=== PATIENT | female | born 1940 | race Caucasian/White ===

== ENCOUNTER 2016-09-17 08:13 | Day surgery (SDC) | payer MEDICARE, OTHER ==
[2016-09-17] VITALS (9 sets, daily range): BP systolic 135–165; BP diastolic 55–75; PULSE 69–75; RESP 14–17; O2SAT 92–100
[~2016-09-17] VITALS: Ht 152.4 cm; Wt 53.8 kg
[~2016-09-17 08:13] MED LIST: CHOL200025 PO; CYAN500L4 PO; CeFAZolin 2 Gm/50 mL D5W IV Premix IV ONE; DOCU-41 PO; EZET10TA PO; KEN1O TP; LACT1CAP65 PO; LEVO50TA83 PO; MAGNESIUM PO; NITR0.4T6 SL; POLY17PO6 PO; RAMI10CA31 PO; ROSU40TA PO; ZYL100 PO; [UNRECOGNIZED DRUG - OTHER] PO
[2016-09-17] MEDS ORDERED: Ondansetron 2 mg/mL 2 mL Inj ONE (08:14)
[2016-09-17] MEDS ORDERED: fentaNYL-PF 50 mCg/mL 2 mL Inj ONE (08:14)
[2016-09-17] MEDS ORDERED: Dexamethasone 4 mg/mL Inj ONE (08:14)
[2016-09-17] MEDS ORDERED: Propofol 10,000 mCg/mL 20 mL Inj ONE (08:14)
--- NOTE | 2016-09-17 08:35 | PCM.HPANE ---
Patient Data Surgeon Admitting Provider: Attending Provider:Darrell Barraza MD Primary Care Physician:Shaylee Corrigan MD Other Provider:Pretty Hamiltoningham Anesthesia Reason for Visit Follicular Lymphoma, Axillary Lymphadenopathy Ht/WT & BMI Height (Feet): 4 Height (Inches): 11 Weight (Kilograms): 54.5 Body Mass Index 24.00 Allergies Coded Allergies: codeine (Verified Allergy, Unknown, unknown, 09/12/16) morphine (Verified Allergy, Unknown, unknown, 09/12/16) Sulfa (Sulfonamide Antibiotics) (Verified Adverse Reaction, Severe, vomiting, 09/12/16) Past Anesthesia History Anesthesia History: Denies:: Anesthesia Reactions, Malignant Hyperthermia Diabetes History Hx Diabetes?: No MRSA MRSA: No Medications Blood Thinner: Aspirin Hypertension Medication: Yes (RAMIPRIL) Reported Medications Cyanocobalamin (Vitamin B-12) (Vitamin B-12)500 Mcg Eugbwam270 Mcg PO DAILY 09/12/16 Triamcinolone Acet (Triamcinolone Acetonide Ointment)1 Applic/0.25 Gm Oint1 Applic TP BID PRN PRN #60 GM Ref 0 09/12/16 Polyethylene Glycol 3350 (Miralax)17 Gm Powd.pack17 Gm PO DAILY 09/12/16 Docusate Sodium (Colace)100 Mg Oujvksq909 Mg PO HS PRN For Constipation Ref 0 09/12/16 Allopurinol 100 Mg Ereoph489 Mg PO DAILY Ref 0 09/09/16 Lactobacillus Acidophilus (Probiotic)1 Each Capsule1 Each PO DAILY 09/09/16 [magnesium/chelated] No Conflict Fbskx287 Mg PO BID 09/09/16 Cholecalciferol (Vitamin D3) (Vitamin D3)2,000 Unit Tablet2,000 Unit PO DAILY 09/09/16 Nitroglycerin SL 0.4 Mg Tab.subl0.4 Mg SL DIRECTED PRN chest pain 09/09/16 Ezetimibe (Zetia)10 Mg Tablet5 Mg PO DAILY 30 Days Ref 0 10/01/14 Levothyroxine (Synthroid)50 Mcg Hbjdfk74 Mcg PO DAILY 30 Days Ref 0 10/01/14 Rosuvastatin Calcium (Crestor)40 Mg Iwaydf80 Mg PO DAILY 30 Days Ref 0 10/01/14 Ramipril (Altace)10 Mg Rqwagar64 Mg PO BID 10/01/14 Discontinued Reported Medications Aspirin 81 Mg Wofgxs75 Mg PO DAILY Ref 0 09/12/16 Cyanocobalamin (Vitamin B-12)500 Mcg Esl313 Mcg PO 10/01/[address] (Protonix)40 Mg Tablet.dr40 Mg PO DAILY 30 Days Ref 0 10/01/14 Hydrochlorothiazide 25 Mg Xuomzm16 Mg PO DAILY 30 Days Ref 0 10/01/14 Holt-3 Fatty Acids (Fish Oil)500 Mg Capsule.dr500 Mg PO DAILY PRN when needed 10/01/14 Docusate Sodium 100 Mg Ffkijlc637 Mg PO BID PRN For Constipation 30 Days Ref 0 10/01/14 Aspirin (Aspir 81)81 Mg Tablet.dr81 Mg PO DAILY Ref 0 10/01/14 Discontinued Scripts Amoxicillin/Clav K 875-125 mg (Augmentin 875-125 mg)1 Each Tablet1 Each PO BID 8 Days Ref 0 Prov:Dona Franks DO 10/03/14 History History of ENT Problems?: Yes HEENT History: Positive for:: Cataracts (early stage) Hx of Heart Problems?: Yes Cardiovascular History: Positive for:: Chest Pain (HX OF) Coronary Artery Disease Hypertension (HYPERLIPIDEMIA) Denies:: Congestive Heart Failure Heart Murmur Hx of Respiratory Problem?: No Respiratory History: Denies:: Tuberculosis Use of C-PAP Machine Hx Neurologic Problems?: No Hx of GI Problems?: Yes Gastrointestinal History: Positive for:: Diverticulitis ("HIGH-RIGHT BEHIND MY LIVER") Gall Bladder Disease (S/P SWETA) Gastroesphageal Reflux Hiatal Hernia (S/P RPR) Other GI Pertinent History: S/P APPY HX OF LYMPHOMA W/ BOWEL INVOLVEMENT Hx of Problems?: Yes Genitourinary History: Positive for:: Urinary Tract Infection (HX OF) Female Hx: Positive for:: Problems with Breasts? (S/P LT BREAST BX,PARTIAL MASTECTOMY FOR CA) Denies:: Currently Skin History: Positive for:: History Skin Disorders? (sensitive skin) Denies:: Pressure Ulcers Hx Musculoskeletal Problems?: Yes Musculoskeletal History: Positive for:: Back Injury (sciatica) Hx of Psycho/Social Problems?: No Hx Surgeries?: Yes (BREAST BX,LT MASTECTOMY,SWETA,APPY,HYST,HIATAL HERNIA RPR, THYROID LOBECTOMY) Hx Any Other Health Problems?: Yes Other History: Positive for:: Cancer (LT BREAST,LYMPHOMA W/ BOWEL INVOLVEMENT, PRO RT AXILLARY INVOLVEMENT) Hospitalization (ABD PAIN) Thyroid Disease (S/P LT THYROID LOBECTOMY) Denies:: Endocrine Disease History Blood Transfusions: Denies:: Blood Transfusions Hx Diabetes: No Other Pertinent History: FOLLICULAR LYMPHOMA/RT AXILLARY LYMPHADENOPATHY= CURRENT PROBLEM Hx Alcohol Use: YesAlcoholic Drinks Per Day: 2-4/WEEKHx Substance Use: No Smoking Status: Never Smoker Have You Smoked inLast 12 mo: No Stop/Bang S-Snoring: Do You Snore Loudly: No T-Tired: feel tired, fatigued: No O-Obsered: Observed not breath: No P-Blood Pressure: treated: Yes B- Body Mass Index > 35 kg/m2: No A- Age over 50: Yes N- Neck Large Circumference: No G- Gender Male: No ANAM Total Score: 2 Risk Assessment Category Category 1A: Patient has history of documented sleep apnea, and HAS NOT received any narcotic, sedative or anesthesia administration during this stay. Category 1B: Patient has history of documented sleep apnea, and HAS received any narcotic , sedative or anesthesia administration during this stay Category 2: Patient has SUSPECTED Obstructive Sleep Apnea, and HAS received any narcotic , sedative or anesthesia administration during this stay. Category 3: Patient has SUSPECTED Obstructive Sleep Apnea and HAS NOT received narcotic, sedative or anesthesia administration during this stay. Category 4: Outpatient in Procedural Areas with known sleep apnea or who screen positive for High Risk via the STOP/BANG questionnaire. Exam Exam General Appearance: Alert, Oriented X3, Cooperative, No Acute Distress HEENT/AIRWAY: MP 1 Lungs: Normal Air Movement, Other (Can lay flat without SOB, no trouble swallowing, no hoarseness, no leg swelling.) Heart: Regular Rate/Rhythm Plan Impression Patient chart reviewed, patient interviewed and anesthestic plan with risks, benefits, and alternatives discussed, and informed consent obtained. ASA Physical Status: ASA3 Severe Disease Anesthetic Plan: GA Bene/Risks/Altern/Consents: Yes HP Complete Prior to Induction: Yes Radha Hall DO Sep 17, 2016 08:35
[2016-09-17] MEDS: Lactated Ringer's 1,000 ML IV SCH ×2 (09:15→10:30)
[2016-09-17] MEDS ORDERED: Lactated Ringer's 1,000 ML IV SCH (10:25)
[2016-09-17] MEDS ORDERED: MetoCLOpramide 5 mg/mL 2 mL Inj IVPUSH PRN (10:25)
[2016-09-17] MEDS ORDERED: fentaNYL-PF 50 mCg/mL 2 mL Inj IVPUSH PRN (10:25)
[2016-09-17] MEDS ORDERED: Phenylephrine 10,000 mCg/mL Inj IVPUSH PRN (10:25)
[2016-09-17] MEDS ORDERED: EPHEDrine Sulfate 50 mg/mL Inj IVPUSH PRN (10:25)
[2016-09-17] MEDS ORDERED: Lactated Ringer's 500 ML IV PRN (10:25)
[2016-09-17] MEDS ORDERED: Ondansetron 2 mg/mL 2 mL Inj IVPUSH PRN (10:25)
[2016-09-17] MEDS ORDERED: HYDROmorphone 1 mg/mL Inj IVPUSH PRN (10:25)
[2016-09-17] MEDS ORDERED: HepLOK Flush 100 unit/mL 5 mL Inj IVFLUSH ONE (11:07)
[2016-09-17] MEDS ORDERED: Bupivacaine-MPF 0.5% 30 mL Inj INFILTRATE ONE (11:07)
[2016-09-17] MEDS ORDERED: HYDROcodone-APAP 5-325 mg Tablet PO PRN (11:45)
--- NOTE | 2016-09-17 11:55 | OP ---
[address] [address] OPERATIVE REPORT PATIENT: ELIU SIDDIQI : 1940 MR#: [id number] ADMIT: 09/17/2016 JOB ID: [id number] DATE OF SURGERY: 09/17/2016 ANESTHESIA: General. PREOPERATIVE DIAGNOSIS(ES): Stage IV low-grade follicular lymphoma and history of breast cancer and right axillary lymphadenopathy. POSTOPERATIVE DIAGNOSIS(ES): Stage IV low-grade follicular lymphoma and history of breast cancer and right axillary lymphadenopathy. OPERATIVE PROCEDURES: 1. Insertion of left subclavian vein Port-A-Cath using fluoroscopy with interpretation for guidance. 2. Right axillary lymph node excisional biopsy. SURGEON: Dr. Darrell Barraza. MA[employer] SECURITY: Adalberto Herrera PA-C (the administrative assistant was required for safe and timely completion of the case) and JUDY Marina. COMPLICATIONS: None. ESTIMATED BLOOD LOSS: Minimal. CONDITION: Satisfactory. SPECIMEN: Right axillary lymph node. FINDINGS: 1. A low-profile port was placed in the left subclavian vein without complication. 2. A large easy palpable right axillary node was removed and sent for flow cytometry and gross analysis. INDICATIONS/SIGNIFICANT HISTORY: The patient is a 75-year-old female with a remote history of low-grade follicular lymphoma which has been observed as well as a history of stage I left breast cancer in 2009. She was recently noticed to have enlarging right axillary adenopathy as well as 7 [address] weight loss. A CT was obtained which demonstrated enlarged mediastinal and right axillary lymph nodes and a moderate right pleural effusion. There was a large retroperitoneal mass in the abdomen. The thought was that this likely represents progressive lymphoma but tissue sample was requested and ordered to help define the diagnosis. OPERATIVE TECHNIQUE: The patient was taken into the operating room and placed in the supine position. General anesthesia was administered and perioperative antibiotics were given. The right arm, axilla, chest and neck were all prepped and draped in a standard surgical fashion. A procedural pause was performed. I then accessed the left subclavian vein with the first attempt using a finder needle. A wire was inserted and position confirmed using fluoroscopy. The wire was seen to course through the heart down into the inferior vena cava. I then injected local anesthetic and created a subcutaneous pocket in the left anterior chest. A low-profile Port-A-Cath was secured in place using three 2-0 Prolene sutures. The catheter was tunneled up to the wire exit point and then inserted into the vein using Seldinger technique under fluoroscopic visualization. Good final position was confirmed. The port aspirated and flushed nicely. This was locked with heparin. The skin was then closed using 3-0 Vicryl deep dermal followed by a running 4-0 Monocryl subcuticular. Dermabond was applied. Attention was turned to the right axilla. A transverse incision was made over the palpable adenopathy. Dissection was carried down through the skin and subcutaneous tissue and the axillary fascia. A single enlarged lymph node was easily dissected free, and using the Precise ligature, was removed from the axilla. This was sectioned and sent for flow cytometry and gross specimen analysis. The axilla was then closed with 3-0 Vicryl followed by running 4-0 Monocryl. Dermabond was applied. The entire procedure was well tolerated without complication.
--- NOTE | 2016-09-17 12:21 | PCM.ANEP1 ---
Post Anesthesia Phase 1 PACU Phase 1 Assessment Vital Signs Vital Signs Date Time Temp Pulse Resp B/P Pulse Ox O2 Delivery O2 Flow Rate FiO2 09/17/16 11:55 74 17 160/64 98 Room Air 09/17/16 11:50 73 14 146/75 99 Simple Mask 9 09/17/16 11:45 73 14 144/63 100 Simple Mask 9 09/17/16 11:42 36.5 135/60 100 Simple Mask 9 09/17/16 08:47 36.1 75 16 165/64 98 Room Air Anesthetic Administered: GA Level of Alertness: Sleeping, hard to arouse CLAY's with Equal Strength: Yes Pain: No Nausea or Vomiting: No Oxygen Delivery: Simple Mask Lungs: Normal Air Movement, Other (Can lay flat without SOB, no trouble swallowing, no hoarseness, no leg swelling.) Radha Hall DO Sep 17, 2016 12:21
--- NOTE | 2016-09-17 12:21 | PCM.ANEP2 ---
Post Anesthesia Evaluation ASA/CMS Post Anesthesia VS in Patient's Normal Range?: Yes Resp Stable; Airway Patent?: Yes CV Function & Hydration Stable: Yes Mental Status Recovered?: Yes Pain control Satisfactory?: Yes N/V Control Satisfactory?: Yes Radha Hall DO Sep 17, 2016 12:21
--- NOTE | 2016-09-17 13:33 | DRSVH ---
PROCEDURE: X-RAY CHEST ONE VIEW, PORTABLE ([id number]) INDICATIONS: DEBI CATH PLACEMENT TECHNIQUE: One view of the chest was acquired. COMPARISON: [facility], CT, ABD/PELVIS W/CON (PNL), 10/16/2014, 13:15. Outside Film, NM, PET NECK TO MID THIGH STD, 09/20/2008, 11:58. FINDINGS: Surgical changes and devices: Left subclavian chest port has been placed tip projecting over the mid superior vena cava. Lungs and pleura: No pneumothorax. Airspace opacity involving the right hilum in the medial right lo wer lobe, otherwise the lungs are clear. Mediastinum: Mediastinal contours appear normal. Heart size is normal. Bones and chest wall: No suspicious bony lesions. Overlying soft tissues appear unremarkable. IMPRESSION: 1. No pneumothorax post left chest port placement. 2. Right hilar and medial lower lobe airspace opacity consistent with atelectasis, pneumonia or neopl asm. Continued radiographic surveillance to resolution is recommended. Dictated by: Hans Gonzalez Naldo Interpreted: Tamar Hicks MD on 09/17/2016 at 13:30 Transcribed by: KENNY on 09/17/2016 at 13:33 Approved by: Tamar Hicks M.D. on 09/17/2016 at 14:55
--- NOTE | 2016-09-23 11:29 | PATH ---
SURGICAL PATHOLOGY Attending Physician:Darrell Barraza MD CASE STATUS: Signed Out PATIENT NAME: ELIU SIDDIQI PID: [id number] : 1940 DATE COLLECTED:09/17/2016 23:12 SPECIMEN: Lymph Node, Biopsy CLINICAL HISTORY: LYMPHOMA 1). RIGHT AXILLARY NODE FINAL DIAGNOSIS: LYMPH NODE, RIGHT AXILLARY, EXCISIONAL BIOPSY: Follicular lymphoma, follicular histologic pattern, grade 1-2 out of 3 (low grade) FLOW CYTOMETRIC EVALUATION: Lymph node, right axillary, excisional biopsy (combined parts 1 & 2): 1. Abnormal CD10+ B-cell population identified (see Flow Comments) 2. No abnormal T-cell population identified ICD-10 code(s) C82.94 (follicular lymphoma, unspecified; lymph nodes of axilla and upper limb) NOTE: Flow cytometry comments: Flow cytometry identifies an abnormal mature B-cell population with predominantly small to intermediate cell size; kappa surface light chain restriction; and expression of low-intermediate CD19 and FMC7; intermediate-high CD20 and CD22; and low-intermediate CD10 and CD38; without CD5, CD11c, or CD103. The abnormal B-cell population represents 99% of the B cells, 70% of the lymphocytes, and 69% of the total viable leukocytes in this sample. This finding is consistent with involvement by a B-cell lymphoproliferative disorder, and the coexpression of CD10 on the kappa-restricted cells suggests a follicle center origin, although a CD10+ mantle cell lymphoma cannot be excluded. Correlation with the morphologic and immunohistochemical features of the concurrent paraffin-embedded tissue, including evaluation of bcl-2 and cyclin D1 immunostains, will be required for definitive diagnosis and classification of this process. Note that evaluation of the concurrent paraffin-embedded tissue will be reported separately in [id number]. There is no immunophenotypic evidence of a T-cell non-Hodgkin lymphoma. Flow cytometric analysis indicates that the viable leukocytes include 99% lymphocytes, which are comprised of 71% B-cells, 27% T-cells, and 0.2% NK-cells. The mature B-cells are kappa surface light chain restricted. The T-cells have a moderately elevated CD4:CD8 ratio of 8.8, with an otherwise normal immunophenotype. GROSS DESCRIPTION: The specimen is received in formalin, labeled with the patient's name, sublabeled as right axillary lymph node and consists of a portion of lymph node (1.6 x 1.5 x 1.1 cm). Section code: (A-B) portion of lymph node, serially sectioned. Specimen entirely submitted. Note: Tissue was also received in 2 RPMI containers, which was sent to flow cytometry for flow analysis. 09/18/16 MICRO DESCRIPTION: H&E-stained sections of blocks A and B each reveal portions of a mildly enlarged lymph node with essentially complete architectural effacement by an atypical lymphoid infiltrate with a nodular pattern. The atypical lymphoid nodules have a efgw-da-mgme crowded architecture, and many have attenuated mantle zones. The follicle center cells are predominantly small to intermediate-sized centrocytes, with occasional admixed larger centroblast-like cells. An official Larios-Adrian centroblast count reveals an average of 5 centroblasts per high power field (40x objective; adjusted for an 18mm field of view; 15 vance counted). No sheets of confluent centroblast-like cells are present, and there are no areas of geographic necrosis. The atypical lymphoid infiltrate extends mildly into the small portions of perinodal adipose tissue present in this biopsy. Select immunohistochemical studies were performed on block B, with appropriate positive and negative controls. The atypical lymphocytes are Pax5+ B-cells with uniform coexpression of CD10, bcl-6, and bcl-2 (in the best preserved, best fixed areas), and the B-cells are negative for cyclin D1. The abnormal cells have a [id number] proliferative rate ranging from 5-35%, with an average proliferation of about 20%. CD21+ MCFP meshworks are seen in association with all the atypical lymphoid follicles. A small subset of CD3+ T-cells is present in the background, predominantly in the paracortical regions rimming the atypical nodules. The abnormal B-cells exhibit kappa light chain restriction, but the few background plasma cells are polytypic based on kappa and lambda light chain immunostains. (Note that the atypical B-cells exhibit uniform CD20 expression based on the concurrent flow cytometric analysis of the right axillary lymph node; [id number].) ICD-9 CODES: CPT CODES: 1: 88723, 17911, 37558, 89453(8) Electronically Signed Out Diane Rosales M.D.,[facility] [address], [place] [address] Technical component performed at [facility], [address], [place], [address]
[2016-09-25] MEDS ORDERED: ASPI-973 PO (14:22)
[2016-09-25] MEDS ORDERED: HYDR25TA4 PO (14:22)
[2016-10-20] MEDS ORDERED: DXM4T PO (11:01)
[2016-10-20] MEDS ORDERED: Atarax PO (11:01)
[2016-12-22] MEDS ORDERED: RAMI10CA31 PO (10:01)
[2016-12-22] MEDS ORDERED: OMEG500C PO (10:01)
== END 2016-09-17 23:59 | disposition home or self-care (01) ==
LOC: SAS 08:13
PROVIDERS: ATTEND General Practice
DX: C82.90 Follicular lymphoma, unspecified, unspecified site (principal); R59.0 Localized enlarged lymph nodes; Z17.0 Estrogen receptor positive status [ER+]; I10 Essential (primary) hypertension; E78.5 Hyperlipidemia, unspecified; E03.9 Hypothyroidism, unspecified; I25.10 Atherosclerotic heart disease of native coronary artery without angina pectoris; I73.9 Peripheral vascular disease, unspecified; R00.2 Palpitations; I49.9 Cardiac arrhythmia, unspecified; Z85.3 Personal history of malignant neoplasm of breast; Z92.3 Personal history of irradiation; Z90.10 Acquired absence of unspecified breast and nipple; Z79.82 Long term (current) use of aspirin
CPT/HCPCS: 36561; 38525; 71010; 77001; C1788; J0690; J1100; J1642; J2405; J3010; J7120